=== PATIENT | female | born 1960 | race African-American/Black ===

== ENCOUNTER 2024-03-28 05:04 | Emergency (ER) | payer MEDICARE ==
[2024-03-28] MEDS ORDERED: Sodium Bicarb 50 MEQ/50 ML Abboject 8.4% SYRINGE ONE (15:58)
[2024-03-28] MEDS ORDERED: EPINEPHrine 1 MG/10 ML Abboject SYRINGE ONE (15:58)
== END 2024-03-28 07:43 | disposition expired ==
LOC: BURERS 05:04
DX: I46.9 Cardiac arrest, cause unspecified (principal); I10 Essential (primary) hypertension; E78.00 Pure hypercholesterolemia, unspecified
CPT/HCPCS: 92950; J0171